=== PATIENT | male | born 1980 | race Caucasian/White ===

== ENCOUNTER 2016-12-17 22:06 | Emergency (ER) | payer SELFPAY ==
[~2016-12-17 22:06] MED LIST: METO100T2 PO
--- NOTE | 2016-12-17 22:09 | ED.ADGEN ---
Past History Past Medical History: Hypertension Past Surgical History: No Surgical History Alcohol Use: None Drug Use: None Adult General Chief Complaint Chief Complaint " I been on a binge drinking... [place]... every day for the last 4 days and vomiting really bad.. and now I am dehydrated.. and got a headache from all the vomiting...".. " I am alcoholic.. did have in patient tx once.." HPI HPI Patient is a 36 year old male who presents with above hx and complaints of excessive alcohol intake. Pt. had cyclic vomiting today. No history of bad food.. No specific ill contacts no travel. Patient aware he has a drinking problem. No trauma. Some fevers the last couple days. Pt. states he has not drank anything the past 24 hrs. Pt. states he plans on alcohol rehab. Review of Systems Review of Systems Constitutional: Hx of some subjective feeling of fevers. Eyes: Denies change in visual acuity, redness, or eye pain [] HENT:Hx of nasal congestion Respiratory: Hx non productive cough Cardiovascular: No additional information not addressed in HPI [] GI: Complaints of epigastric abdominal pain, nausea, vomiting,. Denies bloody stools or diarrhea [] : Denies dysuria or hematuria [] Musculoskeletal: Denies back pain or joint pain [] Integument: Denies rash or skin lesions [] Neurologic: Denies headache, focal weakness or sensory changes [] Endocrine: Denies polyuria or polydipsia [] Family History Family History Non-contributory Current Medications Current Medications Current Medications Medications (Trade) Dose Ordered Sig/Nahomi Start Time Stop Time Status Last Admin Dose Admin Ceftriaxone Sodium 1 gm/ Sodium Chloride 50 ml @ 100 mls/hr 1X ONCE 12/18/16 00:00 12/18/16 00:29 DC 12/18/16 02:54 100 MLS/HR Ceftriaxone Sodium (Rocephin) 1 gm STK-MED ONCE 12/18/16 00:49 12/18/16 00:50 DC Famotidine (Pepcid) 20 mg 1X ONCE 12/17/16 22:45 12/17/16 22:46 DC 12/18/16 00:52 20 MG Folic Acid 5 mg STK-MED ONCE 12/17/16 22:38 12/17/16 22:39 DC Folic Acid 5 mg 5 mg STK-MED ONCE 12/17/16 22:37 12/17/16 22:38 DC Lactated Ringer's (Iv Lactated Ringers) 1,000 ml @ As Directed STK-MED ONCE 12/17/16 22:37 12/17/16 22:38 DC Magnesium Sulfate 50 ml @ 25 mls/hr 1X ONCE 12/18/16 00:00 12/18/16 01:59 DC 12/18/16 00:52 25 MLS/HR Morphine Sulfate 10 mg 10 mg 1X ONCE 12/17/16 23:00 12/17/16 23:01 DC 12/17/16 23:07 10 MG Multivitamins/ Minerals (Infuvite Adult) 10 ml STK-MED ONCE 12/17/16 22:38 12/17/16 22:39 DC Multivitamins/ Minerals/Folic Acid/Thiamine HCl/ Lactated Ringer's (Infuvite Adult/ Iv Lactated Ringers) 1,011.2 ml @ 1,000 mls/ hr 1X ONCE 12/17/16 22:45 12/17/16 23:45 DC 12/17/16 22:45 1,000 MLS/HR Ondansetron HCl (Zofran) 8 mg 1X ONCE 12/17/16 23:00 12/17/16 23:01 DC 12/17/16 22:48 8 MG Sodium Chloride (Iv Sodium Chloride 0.9% 50ml) 50 ml @ As Directed STK-MED ONCE 12/18/16 00:48 12/18/16 00:49 DC Thiamine HCl 200 mg STK-MED ONCE 12/17/16 22:37 12/17/16 22:38 DC Allergies Allergies Allergies Coded Allergies Type Severity Reaction Last Updated Verified acetaminophen Allergy Intermediate ITCHING 10/07/16 Yes hydrocodone Allergy Intermediate ITCHING 10/07/16 Yes Physical Exam Physical Exam Constitutional: in acute distress, non-toxic appearance. [] HENT: Normocephalic, atraumatic, bilateral external ears normal, oropharynx dry , no oral exudates, nose normal. [] Eyes: PERRLA, EOMI, conjunctiva normal, no discharge. [] Neck: Normal range of motion, no tenderness, supple, no stridor. [] Cardiovascular: bradycardia Heart rate regular rhythm, no murmur [] Lungs & Thorax: Bilateral breath sounds equal at apexes with scattered wheezes on auscultation [] Abdomen: Bowel sounds decreased, , soft, generalized tenderness, no masses, no pulsatile masses. [] No true rebound . Pt. refuses rectal at this time. Skin: Warm, dry, no erythema, no rash. [] Back: No tenderness, no CVA tenderness. [] Extremities: No tenderness, no cyanosis, no clubbing, ROM intact, no edema. No psoas or heel tap. Few cat scratches on Rt. hand. Neurologic: Alert and oriented X 3, normal motor function, normal sensory function, no focal deficits noted. [] Psychologic: Affect normal, judgement normal, mood normal. [] Current Patient Data Vital Signs Vital Signs Date Time Temp Pulse Resp B/P Pulse Ox O2 Delivery O2 Flow Rate FiO2 12/18/16 03:18 98.1 57 20 161/87 99 Room Air Lab Results Laboratory Tests Test 12/17/16 22:29 12/17/16 23:14 12/17/16 23:49 White Blood Count 21.3x10^3/uL (4.0-11.0) H Red Blood Count 5.11x10^6/uL (4.30-5.70) Hemoglobin 16.0g/dL (13.0-17.5) Hematocrit 46.3% (39.0-53.0) Mean Corpuscular Volume 91fL (79-100) Mean Corpuscular Hemoglobin 31pg (25-35) Mean Corpuscular Hemoglobin Concent 35g/dL (31-37) Red Cell Distribution Width 13.9% (11.5-14.5) Platelet Count 346x10^3/uL (140-400) Neutrophils (%) (Auto) 78% (31-73) H Lymphocytes (%) (Auto) 14% (24-48) L Monocytes (%) (Auto) 6% (0-9) Eosinophils (%) (Auto) 0% (0-3) Basophils (%) (Auto) 1% (0-3) Neutrophils # (Auto) 16.6x10^3uL (1.8-7.7) H Lymphocytes # (Auto) 3.0x10^3/uL (1.0-4.8) Monocytes # (Auto) 1.3x10^3/uL (0.0-1.1) H Eosinophils # (Auto) 0.0x10^3/uL (0.0-0.7) Basophils # (Auto) 0.3x10^3/uL (0.0-0.2) H Segmented Neutrophils % 78% (35-66) H Band Neutrophils % 9% (0-9) Lymphocytes % 10% (24-48) L Monocytes % 3% (0-10) Platelet Estimate Adequate (ADEQUATE) Sodium Level 145mmol/L (136-145) Potassium Level 3.5mmol/L (3.5-5.1) Chloride Level 101mmol/L (98-107) Carbon Dioxide Level 26mmol/L (21-32) Anion Gap 18 (6-14) H Blood Urea Nitrogen 10mg/dL (8-26) Creatinine 1.1mg/dL (0.7-1.3) Estimated GFR (Cockcroft-Gault) 76.2 Glucose Level 134mg/dL (70-99) H Calcium Level 9.2mg/dL (8.5-10.1) Magnesium Level 1.6mg/dL (1.8-2.4) L Amylase Level 54U/L (25-115) Lipase 80U/L (73-393) Ethyl Alcohol Level < 10mg/dL (0-10) Urine Collection Type Unknown Urine Color Yellow Urine Clarity Clear Urine pH 6.5 Urine Specific [place] >=1.030 Urine Protein >100 mg/dl (NEG-TRACE) Urine Glucose (UA) Negmg/dL (NEG) Urine Ketones (Stick) >=160mg/dL (NEG) Urine Blood Small (NEG) Urine Nitrite Neg (NEG) Urine Bilirubin Neg (NEG) Urine Urobilinogen Dipstick 1mg/dL (0.2 mg/dL) Urine Leukocyte Esterase Neg (NEG) Urine RBC Rare/HPF (0-2) Urine WBC Occ/HPF (0-4) Urine Squamous Epithelial Cells Few/LPF Urine Bacteria Few/HPF (0-FEW) Urine Mucus Slight/LPF Urine Opiates Screen Neg (NEG) Urine Methadone Screen Neg (NEG) Urine Barbiturates Neg (NEG) Urine Phencyclidine Screen Neg (NEG) Urine Amphetamine/Methamphetamine Neg (NEG) Urine Benzodiazepines Screen Neg (NEG) Urine Cocaine Screen Neg (NEG) Urine Cannabinoids Screen Pos (NEG) Urine Ethyl Alcohol Neg (NEG) Influenza Type A (Rapid) Negative (NEGATIVE) Influenza Type B (Rapid) Negative (NEGATIVE) Group A Streptococcus Rapid Negative (NEGATIVE) EKG EKG [] Radiology/Procedures Radiology/Procedures My interpretation of Acute abd. no free air under diaphragm. Non-specific bowel gas pattern. [] Course & Med Decision Making Course & Med Decision Making Pertinent Labs and Imaging studies reviewed. (See chart for details). Pt. to take Keflex 500 tid, Pt. push fluids and fruit juices. Zantac 150 bid x and Zofran 8 up qid for nausea. Must complete a follow up. Consider in pt. rehab. [] Final Impression Final Impression 1. Alcohol Intoxication[-binge drink 2. Nausea and Vomiting 3. Upper respiratory infection 4. Leukocytosis 5. Marijuana and Tobacco Use. 6. Dehydration 7. Gastritis Problems: Dragon Disclaimer Dragon Disclaimer This electronic medical record was generated, in whole or in part, using a voice recognition dictation system. TOD HICKS MD Dec 17, 2016 22:09
[2016-12-17] MEDS ORDERED: MVI, ADULT NO.4 WITH VIT K 10 ML VIAL IV ONE ×2 (22:36→22:38)
[2016-12-17] MEDS ORDERED: IV RINGERS SOLUTION,LACTATED 1,000 ML IV ONE ×2 (22:36→22:37)
[2016-12-17] MEDS ORDERED: THIAMINE 200 MG/2 ML VIAL. IV ONE ×2 (22:36→22:37)
[2016-12-17] MEDS ORDERED: FOLIC ACID 5 MG/ML SYRINGE for ER IV ONE ×2 (22:37→22:38)
[2016-12-17] MEDS ORDERED: ONDANSETRON PF 4 MG/2 ML VIAL. ONE (22:42)
[2016-12-17] MEDS ORDERED: MVI, ADULT NO.4 WITH VIT K 10 ML, FOLIC ACID SYRINGE for ER 1 MG, THIAMINE 100 MG in IV... IV ONE ×4 (22:45)
[2016-12-17] MEDS ORDERED: FAMOTIDINE 20 MG TABLET PO ONE (22:45)
[2016-12-17 22:48] LABS: BASO # 0.3 x10^3/uL (0.0-0.2); BASO % 1 % (0-3); EOS % 0 % (0-3); HEMATOCRIT 46.3 % (39.0-53.0); LYMPH % 14 % (24-48); MEAN CORPUSCULAR HEMOGLOBIN 31 pg (25-35); MEAN CORPUSCULAR HGB CONC 35 g/dL (31-37); MEAN CORPUSCULAR VOLUME 91 fL (79-100); MONO # 1.3 x10^3/uL (0.0-1.1); MONO % 6 % (0-9); NEUT # 16.6 x10^3uL (1.8-7.7); NEUT % 78 % (31-73); PLATELET COUNT 346 x10^3/uL (140-400); RED BLOOD COUNT 5.11 x10^6/uL (4.30-5.70); RED CELL DISTRIBUTION WIDTH 13.9 % (11.5-14.5); WHITE BLOOD COUNT 21.3 x10^3/uL (4.0-11.0)
[2016-12-17 22:53] LABS: CALCIUM 9.2 mg/dL (8.5-10.1); CREATININE 1.1 mg/dL (0.7-1.3); GFR 76.2; MAGNESIUM 1.6 mg/dL (1.8-2.4); POTASSIUM 3.5 mmol/L (3.5-5.1)
[2016-12-17] MEDS ORDERED: MORPHINE SULFATE 10 MG/ML SYRINGE. SQ ONE (23:00)
[2016-12-17] MEDS ORDERED: ONDANSETRON PF 4 MG/2 ML VIAL. IV ONE (23:00)
[2016-12-17 23:09] LABS: % BANDS 9 % (0-9); % LYMPHS 10 % (24-48); % MONOS 3 % (0-10); % SEGS 78 % (35-66)
[2016-12-17 23:15] LABS: PLT ESTIMATE ADEQUATE (ADEQUATE)
[2016-12-17 23:29] LABS: BARBITURATES NEG (NEG); BENZODIAZEPINES NEG (NEG); CANNABINOIDS POS (NEG); COCAINE NEG (NEG); METHADONE NEG (NEG); OPIATES NEG (NEG); PHENCYCLIDINE NEG (NEG)
[2016-12-17 23:32] LABS: AMPHETAMINE/METHAMPHETAMINE NEG (NEG)
[2016-12-17 23:37] LABS: BILIRUBIN,URINE NEG (NEG); CLARITY,URINE CLEAR; COLOR,URINE YELLOW; GLUCOSE,URINE NEG (NEG); NITRITE,URINE NEG (NEG); RBC,URINE RARE /HPF (0-2); UROBILINOGEN,URINE 1 mg/dL (0.2 mg/dL); WBC,URINE OCC /HPF (0-4)
[2016-12-17 23:38] LABS: BACTERIA,URINE FEW /HPF (0-FEW); SQUAMOUS EPITHELIAL CELL,UR FEW /LPF
[2016-12-17] MEDS ORDERED: ONDA8TAB12 PO (23:53)
[2016-12-17] MEDS ORDERED: CEPH-264 PO (23:53)
[2016-12-17] MEDS ORDERED: RANI150T6 PO (23:53)
[2016-12-18] MEDS ORDERED: MAGNESIUM SULFATE 2GM 50 ML IV ONE
[2016-12-18] MEDS ORDERED: IV NORMAL SALINE 50ML 50 ML ONE (00:48)
[2016-12-18] MEDS ORDERED: CEFTRIAXONE SODIUM 1 GM VIAL IV ONE (00:49)
[2016-12-18] MEDS: CEFTRIAXONE SODIUM 1 GM in IV NORMAL SALINE 50ML 50 ML IV ONE ×4 (00:52→02:54)
[2016-12-18 01:37] LABS: INFLUENZA A PATIENT NEGATIVE (NEGATIVE); INFLUENZA B PATIENT NEGATIVE (NEGATIVE)
[2016-12-18 03:18] VITALS: BP 161/87
--- NOTE | 2016-12-18 08:08 | RAD ---
Acute abdomen series with chest, 3 views, 12/17/2016: History: Abdominal and chest pain The abdominal gas pattern is unremarkable without evidence of obstruction. No free air is seen in the abdomen. There is no evidence of organomegaly or abnormal abdominal calcification. The heart size is normal. The lungs are clear. There is no evidence of pleural fluid. IMPRESSION: No acute abnormality is detected.
== END 2016-12-18 03:18 | disposition home or self-care (01) ==
LOC: ER 22:08
DX: F10.129 Alcohol abuse with intoxication, unspecified (principal); E86.0 Dehydration; K29.70 Gastritis, unspecified, without bleeding; J06.9 Acute upper respiratory infection, unspecified; R51 Headache; I10 Essential (primary) hypertension; D72.829 Elevated white blood cell count, unspecified; F12.10 Cannabis abuse, uncomplicated; Z88.5 Allergy status to narcotic agent; Z88.8 Allergy status to other drugs, medicaments and biological substances; Y90.9 Presence of alcohol in blood, level not specified
CPT/HCPCS: 36415; 74022; 80048; 80305; 80320; 81001; 82150; 83690; 83735; 85007; 85027; 87040; 87070; 87804; 87880; 96365; 96366; 96367; 96372; 96375; 99285; J0696; J2270; J2405; J3475; J7120; 96368; G0480; G0481

== ENCOUNTER 2017-03-11 22:15 | Emergency (ER) | payer SELFPAY ==
[2017-03-11 22:15] VITALS: BP 114/56
[~2017-03-11 22:15] MED LIST changes: +CEPH-264 PO; +ONDA8TAB12 PO; +RANI150T6 PO
== END 2017-03-11 22:25 | disposition left against medical advice (07) ==
LOC: ER 22:15
DX: F10.129 Alcohol abuse with intoxication, unspecified (principal); Z53.21 Procedure and treatment not carried out due to patient leaving prior to being seen by health care provider
CPT/HCPCS: 99281

== ENCOUNTER 2017-03-11 23:19 | Emergency (ER) | payer SELFPAY ==
[2017-03-11 23:19] VITALS: BP 129/65
[2017-03-11] MEDS ORDERED: MVI, ADULT NO.4 WITH VIT K 10 ML, FOLIC ACID SYRINGE for ER 1 MG, THIAMINE 100 MG in IV... IV SCH ×4 (23:30)
[2017-03-11] MEDS ORDERED: ONDANSETRON PF 4 MG/2 ML VIAL. IV ONE (23:30)
[2017-03-11] MEDS ORDERED: FAMOTIDINE 20 MG/2 ML VIAL IVP ONE (23:30)
[2017-03-11] MEDS ORDERED: LORazepam 2 MG/ML VIAL IV ONE (23:30)
[2017-03-12 00:27] LABS: BASO % 1 % (0-3); EOS # 0.3 x10^3/uL (0.0-0.7); EOS % 4 % (0-3); HEMATOCRIT 47.5 % (39.0-53.0); HEMOGLOBIN 16.4 g/dL (13.0-17.5); LYMPH # 3.8 x10^3/uL (1.0-4.8); LYMPH % 42 % (24-48); MEAN CORPUSCULAR HEMOGLOBIN 32 pg (25-35); MEAN CORPUSCULAR HGB CONC 35 g/dL (31-37); MEAN CORPUSCULAR VOLUME 93 fL (79-100); MONO # 0.4 x10^3/uL (0.0-1.1); MONO % 5 % (0-9); NEUT # 4.4 x10^3uL (1.8-7.7); NEUT % 49 % (31-73); PLATELET COUNT 267 x10^3/uL (140-400); RED CELL DISTRIBUTION WIDTH 13.2 % (11.5-14.5)
[2017-03-12 00:34] LABS: ALBUMIN 4.3 g/dL (3.4-5.0); CALCIUM 8.7 mg/dL (8.5-10.1); CREATININE 1.1 mg/dL (0.7-1.3); DIRECT BILIRUBIN 0.1 mg/dL (0.0-0.2); GFR 76.2; MAGNESIUM 2.1 mg/dL (1.8-2.4); POTASSIUM 3.6 mmol/L (3.5-5.1); TOTAL BILIRUBIN 0.3 mg/dL (0.2-1.0); TOTAL PROTEIN 8.1 g/dL (6.4-8.2)
[2017-03-12 00:36] LABS: ETHANOL 230 mg/dL (0-10); SALIC 4.6 mg/dL (2.8-20.0)
[2017-03-12 00:37] LABS: ACETAMIN < 2.0 mcg/mL (10-30)
--- NOTE | 2017-03-12 07:37 | RAD ---
EXAM: Chest one view. HISTORY: Altered mental status. COMPARISON: 12/17/2016. FINDINGS: A frontal view of the chest is obtained. There are no confluent infiltrates. There is no pneumothorax or pleural effusion. The heart is mildly enlarged. IMPRESSION: 1. Mild cardiomegaly.
== END 2017-03-11 23:47 | disposition left against medical advice (07) ==
LOC: ER 23:19
DX: F10.129 Alcohol abuse with intoxication, unspecified (principal); Z53.21 Procedure and treatment not carried out due to patient leaving prior to being seen by health care provider
CPT/HCPCS: 36415; 71010; 80048; 80076; 82550; 83690; 83735; 84484; 85027; 85610; 85730; 99281; G0480; 99285-25